=== PATIENT | female | born 1965 | race Caucasian/White ===

== ENCOUNTER → 2024-04-15 08:34 | Outpatient (REF) | payer OTHER, SELFPAY ==
[2024-04-15 10:21] LABS: % Basophils 0.9 % (0-2); % Eosinophils 3.2 % (0-6); % Immature Granulocytes 0.2 % (0-0.5); % Lymphocytes 37.6 % (20.5-51.1); % Monocytes 9.5 % (1.7-9.3); % Neutrophils 48.6 % (42.2-75.2); Absolute Eosinophils 0.1 10^3/uL (0-0.7); Absolute Lymphocytes 1.6 10^3/uL (1.2-3.4); Absolute Monocytes 0.4 10^3/uL (0.1-0.6); Absolute Neutrophils 2.1 10^3/uL (1.4-6.5); Hematocrit 39.2 % (37.0-47.0); Hemoglobin 13.2 g/dL (12.0-16.0); Mean Corp Hgb Conc. 33.7 g/dL (33.0-37.0); Mean Platelet Volume 9.9 fL (7.4-10.4); Nucleated Red Blood Cells % 0 %; Platelet Count 305 10^3/uL (130-400); Red Blood Cell Count 4.26 10^6/uL (4.20-5.40); Red Cell Dist. Width 12.3 % (11.5-14.5); White Blood Cell Count 4.3 10^3/uL (4.8-10.8)
[2024-04-15 10:28] LABS: Glycohemoglobin (HgbA1c) 5.8 % (4.0-5.6)
[2024-04-15 15:12] LABS: ALT (SGPT) 28 U/L (0-35); AST (SGOT) 30 U/L (14-36); Albumin 4.6 g/dl (3.5-5.0); Blood Urea Nitrogen 13 mg/dl (7-17); Calcium 9.6 mg/dl (8.4-10.2); Carbon Dioxide 31 mmol/L (22-30); Glucose 104 mg/dl (70-99); Potassium 4.7 mmol/L (3.5-5.1); Total Bilirubin 0.4 mg/dl (0.2-1.3); Total Cholesterol 179 mg/dl (50-199); Triglyceride 149 mg/dl (10-149); Very Low Density Lipoprotein 29 mg/dl (0-30); eGFR > 60.00
[2024-04-15 15:24] LABS: Alkaline Phosphatase 76 U/L (38-126); Chloride 104 mmol/L (98-107); HDL Cholesterol 59 mg/dl; LDL Cholesterol, Calculated 91 mg/dl; Sodium 140 mmol/L (135-145)
[2024-04-15 15:36] LABS: Vitamin D, 25-OH*** 31.2 ng/mL (30-80)
[2024-04-15 15:50] LABS: TSH Reflex To Free T4 2.27 uIU/ml (0.47-4.68)
== END ==
LOC: REG 08:34
PROVIDERS: ATTENDING PHYSICIAN Nurse Practitioner Primary Care
DX: Z00.00 Encounter for general adult medical examination without abnormal findings (principal); E78.2 Mixed hyperlipidemia; R73.03 Prediabetes; E55.9 Vitamin D deficiency, unspecified
CPT/HCPCS: 36415; 80053; 80061; 82306; 83036; 84443; 85025

== ENCOUNTER → 2024-07-11 07:28 | Outpatient (REF) | payer SELFPAY | LOC: RAD 07:28 | PROVIDERS: ATTENDING PHYSICIAN Nurse Practitioner Primary Care | DX: E78.2 Mixed hyperlipidemia (principal); R73.03 Prediabetes | CPT/HCPCS: 75571 ==

== ENCOUNTER → 2024-07-26 07:57 | Outpatient (REF) | payer OTHER, SELFPAY ==
[2024-07-26 09:42] LABS: ALT (SGPT) 27 U/L (0-35); AST (SGOT) 29 U/L (14-36); Albumin 4.6 g/dl (3.5-5.0); Alkaline Phosphatase 70 U/L (38-126); Blood Urea Nitrogen 16 mg/dl (7-17); Calcium 9.7 mg/dl (8.4-10.2); Carbon Dioxide 26 mmol/L (22-30); Chloride 105 mmol/L (98-107); Glucose 108 mg/dl (70-99); HDL Cholesterol 61 mg/dl; LDL Cholesterol, Calculated 106 mg/dl; Potassium 4.7 mmol/L (3.5-5.1); Sodium 144 mmol/L (135-145); Total Bilirubin 0.3 mg/dl (0.2-1.3); Total Cholesterol 186 mg/dl (50-199); Total Protein 7.1 g/dl (6.3-8.2); Triglyceride 97 mg/dl (10-149); Very Low Density Lipoprotein 19 mg/dl (0-30); eGFR > 60.00
[2024-07-26 09:49] LABS: C-Reactive Protein < 5.00 mg/L (0.0-10.00)
[2024-07-26 10:56] LABS: Glycohemoglobin (HgbA1c) 5.9 % (4.0-5.6)
[2024-07-28 15:22] LABS: Lipoprotein a (Lp a) 8 mg/dL (<=29)
== END ==
LOC: REG 07:57
PROVIDERS: ATTENDING PHYSICIAN Nurse Practitioner Primary Care; FAMILY PHYSICIAN Internal Medicine Geriatric Medicine
DX: R73.03 Prediabetes (principal); E78.2 Mixed hyperlipidemia; R74.8 Abnormal levels of other serum enzymes; Z01.84 Encounter for antibody response examination; R73.01 Impaired fasting glucose; R42 Dizziness and giddiness
CPT/HCPCS: 36415; 80053; 80061; 83036; 83695; 86140

== ENCOUNTER → 2024-08-14 06:35 | Outpatient (REF) | payer OTHER, SELFPAY ==
[2024-08-14 07:59] LABS: Urine Albumin Negative (Neg - Trace); Urine Bilirubin Negative (Negative); Urine Character Slightly Cloudy (Clear); Urine Color Yellow; Urine Glucose Negative (Negative); Urine Ketone Negative (Negative); Urine Leukocyte Negative (Negative); Urine Nitrite Negative (Negative); Urine Occult Blood Negative (Negative); Urine Urobilinogen Negative (Neg - 1+)
== END ==
LOC: REG 06:35
PROVIDERS: ATTENDING PHYSICIAN Nurse Practitioner Primary Care; FAMILY PHYSICIAN Internal Medicine Geriatric Medicine
DX: R39.9 Unspecified symptoms and signs involving the genitourinary system (principal)
CPT/HCPCS: 81003; 87086

== ENCOUNTER → 2024-08-21 14:25 | Outpatient (REF) | payer OTHER, SELFPAY | LOC: RAD 14:25 | PROVIDERS: ATTENDING PHYSICIAN Nurse Practitioner Primary Care | DX: Z85.3 Personal history of malignant neoplasm of breast (principal); Z13.820 Encounter for screening for osteoporosis | CPT/HCPCS: 77080 ==

== ENCOUNTER 2024-10-19 13:17 | Emergency (ER) | payer OTHER, SELFPAY ==
[2024-10-19 13:20] VITALS: BP 144/87
[2024-10-19 13:49] LABS: COVID-19 Antigen Negative (Negative)
[2024-10-19] MEDS: TORADOL 15 MG IV (15:21)
[2024-10-19] MEDS: NSS 1000 IV (15:22)
--- NOTE | 2024-10-19 15:39 | ED.GENMED ---
History of Present Illness
<Obed Wilburn Jr., PA-C - Last Filed: 10/20/24 13:46>
General
Chief Complaint: Cold/Flu/URI Symptoms
Source: patient
Exam Limitations: none
Time Seen by Provider: 10/19/24 15:00
Nursing documentation reviewed up to this point in time: agreed with
History of Present Illness
History of Present Illness:
59-year-old female presenting to the emergency department today with concerns of upper respiratory symptoms over the past 4 days chills fever. Claims that she has had intermittent fevers throughout the duration. Has been taking Tylenol and Motrin.
Denies any chest pain denies shortness of breath.
Past History
<Obed Wilburn Jr., PA-C - Last Filed: 10/20/24 13:46>
Past History
ED Past Medical History: None
ED Past Surgical History: None
Social History
Tobacco: Non-smoker
Drug: None
Living: with family
Review of Systems
<Obed Wilburn Jr., PA-C - Last Filed: 10/20/24 13:46>
Review of Systems
Allergies reviewed?: Yes
All Other Systems: ROS reviewed and negative except as documented in HPI and ROS
Phy Exam
<Obed Wilburn Jr., PA-C - Last Filed: 10/20/24 13:46>
Physical Exam
Physical Exam:
GENERAL: Alert , in no apparent distress
EYE: pupils equal and reactive
NECK: Supple, no significant adenopathy.
ENT: o/p clr, mmm.
CARDIAC: Regular rate and rhythm .
LUNGS: Clear breath sounds bilaterally, no acute respiratory distress, no wheezes/rales/rhonchi
ABDOMEN: Soft, without focal tenderness, no r/g, no cvat
NEUROLOGICAL: Alert and oriented, no focal neuro deficits
SKIN: Warm and dry, skin intact.
MUSCULOSKELETAL: No edema, well perfused.
PSYCH: Normal and appropriate interaction.
Swollen boggy nasal turbinates,
Course
<Obed Wilburn Jr., PA-C - Last Filed: 10/20/24 13:46>
Orders/Labs/Results
Orders:
Orders
10/19/24 13:25
COVID-19 Antigen Urgent
Source: Nasal Swab
INF RAPID [Influenza A+B Rapid Molecular] Urgent
ANUPAMA Source: Nasal Swab
Specimen Description:
10/19/24 15:17
Ketorolac [Toradol] 15 mg IV NOW STA
Chest [CR Chest - 2 Views ] Urgent
Comment:
Reason For Exam: cough fever
10/19/24 15:18
0.9% Sodium Chloride 1000 ml [Nss] 1,000 ml IV BOLUS
10/19/24 15:24
BMP [Basic Metabolic Panel] Urgent
CBC/With Diff [Complete Blood Count/With Diff] Urgent
Abnormal Lab Results
10/19/24
15:24
Absolute Lymphs (auto) 0.5 L 10^3/uL
(1.2-3.4)
Neutrophils % 78.1 H %
(42.2-75.2)
Lymphocytes % 9.9 L %
(20.5-51.1)
Monocytes % 10.1 H %
(1.7-9.3)
Creatinine 0.5 L mg/dL
(0.6-1.0)
Glucose 118 H mg/dl
(70-99)
10/19/24 15:24
10/19/24 15:24
Vital Signs
Initial and Last Documented VS:
Initial Vital Signs
Pulse Resp BP Pulse Ox
112 20 144/87 98
10/19/24 13:20 10/19/24 13:20 10/19/24 13:20 10/19/24 13:20
Last Documented Vital Signs
Temp Pulse Resp BP Pulse Ox
98.3 F 112 20 144/87 98
10/19/24 17:30 10/19/24 13:20 10/19/24 13:20 10/19/24 13:20 10/19/24 13:20
<JONATHAN Miller - Last Filed: 10/19/24 18:06>
Orders/Labs/Results
Orders:
Orders
10/19/24 13:25
COVID-19 Antigen Urgent
Source: Nasal Swab
INF RAPID [Influenza A+B Rapid Molecular] Urgent
ANUPAMA Source: Nasal Swab
Specimen Description:
10/19/24 15:17
Ketorolac [Toradol] 15 mg IV NOW STA
Chest [CR Chest - 2 Views ] Urgent
Comment:
Reason For Exam: cough fever
10/19/24 15:18
0.9% Sodium Chloride 1000 ml [Nss] 1,000 ml IV BOLUS
10/19/24 15:24
BMP [Basic Metabolic Panel] Urgent
CBC/With Diff [Complete Blood Count/With Diff] Urgent
Abnormal Lab Results
10/19/24
15:24
Absolute Lymphs (auto) 0.5 L 10^3/uL
(1.2-3.4)
Neutrophils % 78.1 H %
(42.2-75.2)
Lymphocytes % 9.9 L %
(20.5-51.1)
Monocytes % 10.1 H %
(1.7-9.3)
Creatinine 0.5 L mg/dL
(0.6-1.0)
Glucose 118 H mg/dl
(70-99)
10/19/24 15:24
10/19/24 15:24
Vital Signs
Initial and Last Documented VS:
Initial Vital Signs
Pulse Resp BP Pulse Ox
112 20 144/87 98
10/19/24 13:20 10/19/24 13:20 10/19/24 13:20 10/19/24 13:20
Last Documented Vital Signs
Temp Pulse Resp BP Pulse Ox
98.3 F 112 20 144/87 98
10/19/24 17:30 10/19/24 13:20 10/19/24 13:20 10/19/24 13:20 10/19/24 13:20
<Obed Wilburn Jr., PA-C - Last Filed: 10/20/24 13:46>
MDM/Problems Addressed
MDM/Problems Addressed:
59-year-old female presenting to the emergency department today with concerns of upper respiratory symptoms over the past 4 days. Mildly tachycardic upon arrival with nasal congestion and hacking cough but otherwise lungs are clear. No abdominal
pain patient in no obvious distress. She does claim to have some mild lightheadedness concerning this plan for labs and chest x-ray. Otherwise patient was positive for influenza. Will be given fluids as well as Toradol to help with symptoms.
<JONATHAN Miller - Last Filed: 10/19/24 18:06>
MDM/Problems Addressed
MDM/Problems Addressed:
59-year-old female presenting to the emergency department today with concerns of upper respiratory symptoms over the past 4 days. Mildly tachycardic upon arrival with nasal congestion and hacking cough but otherwise lungs are clear. No abdominal
pain patient in no obvious distress. She does claim to have some mild lightheadedness concerning this plan for labs and chest x-ray. Otherwise patient was positive for influenza. Will be given fluids as well as Toradol to help with symptoms.
1700: Received signout.
Patient no acute distress nontoxic-appearing chest x-ray negative labs unremarkable, feels well enough to go home.
<JONATHAN Miller - Last Filed: 10/19/24 18:06>
*Critical Care Note
Total Time (30-74mins, 75-104mins- exclusive of procedures): Not Applicable
ED Attending Note
<Obed Wilburn Jr., PA-C - Last Filed: 10/20/24 13:46>
-
Portions of this chart may have been created with voice recognition software.� Occasional wrong word or��sound alike� substitutions may have occurred due to the inherent limitations of voice recognition software.
Discharge Plan
Departure
Patient Disposition: Home (Routine Discharge)
Date of Disposition: 10/19/24
Time of Disposition: 17:15
Patient with high blood pressure during this ER visit?: No
Condition: Good
Covid-19: Not Applicable
Discharge Problem:
Influenza A
Instructions: Flu in adults - Discharge instructions
Prescriptions:
No Action
hydrocodone-acetaminophen 1 TABLET tablet
1 tab PO Q4HPRN PRN (Reason: severe pain) Qty: 15 0RF
metaxalone [Skelaxin] 800 MG tablet
800 mg PO TIDPRN PRN (Reason: muscle spasms) Qty: 15 0RF
Stand Alone Forms: Return to Work
Activity Restrictions/Additional Instructions:
You came to the emergency department today with concerns of symptoms consistent with influenza. You were positive for influenza here. You had a reassuring assessment otherwise. Please stay hydrated over the next few days as symptoms will
hopefully improve. Return for any worsening, new or concerning symptoms.
Interventions
Interventions:
*Risk Screen - Suicide Last Done: 10/19/24 13:20
ED- Fall Risk Assessment Last Done: 10/19/24 17:32
*Nursing Disposition Last Done: 10/19/24 17:32
ED- Pulmonary Assessment Last Done: 10/19/24 17:30
Discharge Date and Time
Discharge Date/Time: 10/19/24 17:32
Print Language: FRISIAN
[2024-10-19 15:45] LABS: % Basophils 0.6 % (0-2); % Eosinophils 1.1 % (0-6); % Immature Granulocytes 0.2 % (0-0.5); % Lymphocytes 9.9 % (20.5-51.1); % Monocytes 10.1 % (1.7-9.3); % Neutrophils 78.1 % (42.2-75.2); Absolute Eosinophils 0.1 10^3/uL (0-0.7); Absolute Lymphocytes 0.5 10^3/uL (1.2-3.4); Absolute Monocytes 0.5 10^3/uL (0.1-0.6); Absolute Neutrophils 3.7 10^3/uL (1.4-6.5); Hematocrit 38.5 % (37.0-47.0); Hemoglobin 12.8 g/dL (12.0-16.0); Mean Corp Hgb Conc. 33.2 g/dL (33.0-37.0); Mean Corpuscular Hgb 29.8 pg (27.0-31.0); Mean Corpuscular Volume 89.7 fL (81.0-99.0); Mean Platelet Volume 9.1 fL (7.4-10.4); Nucleated Red Blood Cells % 0 %; Platelet Count 259 10^3/uL (130-400); Red Blood Cell Count 4.29 10^6/uL (4.20-5.40); Red Cell Dist. Width 12.2 % (11.5-14.5); White Blood Cell Count 4.8 10^3/uL (4.8-10.8)
[2024-10-19 16:00] LABS: Blood Urea Nitrogen 10 mg/dl (7-17); Calcium 9.7 mg/dl (8.4-10.2); Carbon Dioxide 27 mmol/L (22-30); Chloride 100 mmol/L (98-107); Glucose 118 mg/dl (70-99); Sodium 136 mmol/L (135-145); eGFR > 60.00
== END 2024-10-19 17:32 | disposition home or self-care (01) ==
LOC: EMR 13:17
PROVIDERS: Emergency Medicine; Physician Assistant; EMERGENCY PHYSICIAN Emergency Medicine; FAMILY PHYSICIAN Nurse Practitioner Primary Care
DX: J10.1 Influenza due to other identified influenza virus with other respiratory manifestations (principal)
CPT/HCPCS: 99283; 71046; 80048; 85025; 87502; 87811

== ENCOUNTER → 2024-11-18 16:24 | Outpatient (REF) | payer OTHER, SELFPAY | LOC: RAD 16:24 | PROVIDERS: ATTENDING PHYSICIAN Nurse Practitioner Primary Care | DX: R22.41 Localized swelling, mass and lump, right lower limb (principal); M25.561 Pain in right knee | CPT/HCPCS: 73564; 93971 ==

== ENCOUNTER → 2024-12-04 13:12 | Outpatient (REF) | payer OTHER, SELFPAY ==
[2024-12-04 14:17] LABS: % Basophils 0.2 % (0-2); % Immature Granulocytes 0.2 % (0-0.5); % Lymphocytes 32.3 % (20.5-51.1); % Monocytes 10.8 % (1.7-9.3); % Neutrophils 53.5 % (42.2-75.2); Absolute Eosinophils 0.1 10^3/uL (0-0.7); Absolute Lymphocytes 1.3 10^3/uL (1.2-3.4); Absolute Monocytes 0.4 10^3/uL (0.1-0.6); Absolute Neutrophils 2.2 10^3/uL (1.4-6.5); Hematocrit 37.9 % (37.0-47.0); Hemoglobin 12.5 g/dL (12.0-16.0); Mean Corpuscular Volume 91.1 fL (81.0-99.0); Nucleated Red Blood Cells % 0 %; Platelet Count 322 10^3/uL (130-400); Red Blood Cell Count 4.16 10^6/uL (4.20-5.40); Red Cell Dist. Width 12.4 % (11.5-14.5); White Blood Cell Count 4.1 10^3/uL (4.8-10.8)
[2024-12-04 14:49] LABS: Uric Acid 3.5 mg/dl (2.5-6.2)
[2024-12-04 14:52] LABS: Erythrocyte Sed Rate 8 mm/hour (0-20)
[2024-12-05 12:30] LABS: Lyme Antibody Screen, EIA Negative (Negative)
[2024-12-05 13:34] LABS: Rheumatoid Agglutinin Less Than 10 IU (<10 IU)
[2024-12-06 23:42] LABS: ANA, IgG Reflex to HEp-2 None Detected (None Detected)
== END ==
LOC: REG 13:12
PROVIDERS: ATTENDING PHYSICIAN Nurse Practitioner Primary Care
DX: M25.572 Pain in left ankle and joints of left foot (principal); M79.672 Pain in left foot; R93.6 Abnormal findings on diagnostic imaging of limbs
CPT/HCPCS: 36415; 73610; 73630; 84550; 85025; 85652; 86038; 86140; 86430; 86618

== ENCOUNTER → 2024-12-13 07:28 | Outpatient (REF) | payer OTHER, SELFPAY | LOC: PAVMRI 07:28 | PROVIDERS: ATTENDING PHYSICIAN Nurse Practitioner Primary Care; FAMILY PHYSICIAN Internal Medicine Geriatric Medicine | DX: M25.561 Pain in right knee (principal); M25.469 Effusion, unspecified knee; R93.6 Abnormal findings on diagnostic imaging of limbs | CPT/HCPCS: 73721 ==